=== PATIENT | male | born 1950 | race Caucasian/White ===

== ENCOUNTER 2020-11-13 21:17 | Emergency (ER) | payer OTHER, MEDICARE ==
[2020-11-13] MEDS ORDERED: Boostrix 0.5 ML (Tdap) VIAL ONE (21:38)
== END 2020-11-13 23:11 | disposition home or self-care (01) ==
LOC: NAV ERS 21:17
DX: S12.200A Unspecified displaced fracture of third cervical vertebra, initial encounter for closed fracture (principal); S00.31XA Abrasion of nose, initial encounter; S40.812A Abrasion of left upper arm, initial encounter; S80.812A Abrasion, left lower leg, initial encounter; E78.5 Hyperlipidemia, unspecified; Z79.899 Other long term (current) drug therapy; V89.2XXA Person injured in unspecified motor-vehicle accident, traffic, initial encounter
CPT/HCPCS: 70450; 72125; 90471; 90715